=== PATIENT | female | born 1970 | race Caucasian/White ===

== ENCOUNTER 2019-10-05 19:51 | Emergency (ER) | payer OTHER ==
[2019-10-05] MEDS ORDERED: ONDANSETRON *ODT* 4 MG TABLET SL ONE (20:22)
[2019-10-05 20:24] VITALS: TEMP 98.7
--- NOTE | 2019-10-05 20:24 | PDOC ---
History of Present Illness - General Chief Complaint: Cold Symptoms Stated Complaint: SYNCOP/FEVER/ COUGH Time Seen by Provider: 10/05/19 20:07 History Source: Patient - History of Present Illness Initial Comments: 10/05/19 20:17 49 year old female BIB ambulance c/o feve rx 4 days, cough, + naUSEA. patient reports that she " passed out after feeling nauseous" denies chest pAIN, diaphoresis, headache. no head injury during the syncopal episode. witnessed as per patient. denies incontinence of bowel or urine BGm by ems 111 denies recent travel, denies covid contact. with similar symptoms. Timing/Duration: reports: just prior to arrival Past History - Travel Traveled outside of the country in the last 30 days: No Close contact w/someone who was outside of country & ill: No - Past Medical History Allergies/Adverse Reactions: Allergies Allergy/AdvReac Type Severity Reaction Status Date / Time No Known Allergies Allergy Verified 07/02/16 10:11 Home Medications: Ambulatory Orders Ibuprofen [Motrin -] 600 mg PO TID #21 tablet 07/02/16 Cancer: Yes (BRAIN TUMOR) - Surgical History Neurologic Surgery: Yes ("BRAIN TUMOR REMOVAL") - Psycho Social/Smoking Cessation Hx Smoking History: Never smoked Review of Systems - Review of Systems Able to Perform ROS?: Yes Is the patient limited Nicaraguan proficient: No Constitutional: Yes: Chills, Fever Cardiac (ROS): Yes: Lightheadedness ABD/GI: Yes: Nausea Neurological: Yes: Dizziness *Physical Exam - Vital Signs 10/05/19 20:24 Last Vital Signs Temp Pulse Resp BP Pulse Ox 98.7 F 98 H 16 100/59 L 100 10/05/19 20:19 10/05/19 20:19 10/05/19 20:19 10/05/19 20:19 10/05/19 20:19 - Physical Exam General Appearance: Yes: Appropriately Dressed Respiratory/Chest: positive: Lungs Clear, Normal Breath Sounds Cardiovascular: positive: Tachycardia Extremity: positive: Normal Capillary Refill, Normal Inspection, Normal Range of Motion Integumentary: positive: Warm, Pale Neurologic: positive: Fully Oriented, Alert ED Progress Note - Progress Note Progress Note: 10/05/19 20:29 A: syncope; suspected COvid P: labs EKG chest xray case discussed with Dr. barton. patient send to room 9b Discharge - Discharge Information Problems reviewed: Yes Clinical Impression/Diagnosis: Suspected 2019 novel coronavirus infection, Syncope and collapse - Follow up/Referral Referrals: Darrius Mascorro [Primary Care Provider] - - Patient Discharge Instructions - Post Discharge Activity
--- NOTE | 2019-10-05 20:43 | PDOC ---
History of Present Illness - General Chief Complaint: Cold Symptoms Stated Complaint: SYNCOP/FEVER/ COUGH Time Seen by Provider: 10/05/19 20:07 History Source: Patient Exam Limitations: No Limitations - History of Present Illness Initial Comments: 10/05/19 20:42 Paula Barrientos is a 49F with PMH meningioma s/p resection presenting with syncope with associated nausea, fever, and cough. Has been feeling poorly with URI sx nausea, poor PO intake, and dry cough for the last 5 days, has had fever for last 3 days responsive to Tylenol. Denies covid-19 contacts, with otherwise healthy but started feeling similar sx today, both have been self-quarantining at home for the past week. Today stood up from sitting, was walking in her house when she had a sensation of lightheadedness and warmth traveling up her body, felt nauseated, walked to bathroom and yelled for her and had a syncopal episode, was found by . Denies chest pain, palpitations, SOB, abdominal pain, vomiting, denies any injuries or head injury, denies numbness/tingling, able to walk without issue. Takes gabapentin per OSH neurologist, has had meningioma resection without resid ual deficits. Denies alcohol/drug/tobacco use. Denies . Past History - Past Medical History Allergies/Adverse Reactions: Allergies Allergy/AdvReac Type Severity Reaction Status Date / Time No Known Allergies Allergy Verified 10/05/19 23:32 Home Medications: Ambulatory Orders Ondansetron [Zofran *Odt*] 4 mg SL BID #14 od.tablet 10/05/19 Cancer: Yes (BRAIN TUMOR) - Surgical History Neurologic Surgery: Yes ("BRAIN TUMOR REMOVAL") - Psycho Social/Smoking Cessation Hx Smoking History: Never smoked Have you smoked in the past 12 months: No Review of Systems - Review of Systems Able to Perform ROS?: Yes Is the patient limited Albanian proficient: No Constitutional: Yes: Chills, Fever, Malaise, Weakness HEENTM: No: Blurred Vision, Recent change in vision, Double Vision Respiratory: Yes: Cough. No: Shortness of Breath, SOB with Exertion, SOB at Rest, Productive cough Cardiac (ROS): Yes: Lightheadedness, Syncope. No: Chest Pain, Edema, Irregular Heart Rate ABD/GI: Yes: Nausea, Poor Appetite, Poor Fluid Intake. No: Constipated, D iarrhea, Vomiting : No: Symptoms Reported Musculoskeletal: No: Symptoms Reported Integumentary: No: Symptoms Reported Neurological: No: Headache, Numbness, Paresthesia, Weakness Hematologic/Lymphatic: No: Symptoms Reported All Other Systems: Reviewed and Negative *Physical Exam - Vital Signs Last Vital Signs Temp Pulse Resp BP Pulse Ox 98.7 F 98 H 16 100/59 L 100 10/05/19 20:19 10/05/19 20:19 10/05/19 20:19 10/05/19 20:19 10/05/19 20:19 - Physical Exam General Appearance: Yes: Nourished, Appropriately Dressed, Other (resting comfortably in bed, in NAD, good spirits). No: Apparent Distress HEENT: positive: EOMI, AZAEL, Normal Voice, Symmetrical, Pharynx Normal. negative: Scleral Icterus (R), Scleral Icterus (L), Pharyngeal Erythema, Tonsillar Exudate, Tonsillar Erythema Neck: positive: Trachea midline, Supple. negative: Tender, Normal Thyroid, Rigid, Lymphadenopathy (R), Lymphadenopathy (L), Tender lateral, Tender midline Respiratory/Chest: positive: Lungs Clear, Normal Breath Sounds. negative: Chest Tender, Respiratory Distress, Accessory Muscle Use, Crackles, Rales, Rhonchi, Stridor, Wheezing Cardiovascular: positive: Regular Rhythm, Regular Rate. negative: Murmur Gastrointestinal/Abdominal: positive: Normal Bowel Sounds, Flat, Soft. negative: Tender, Organomegaly, Pulsatile Mass, Guarding, Rebound Musculoskeletal: positive: Normal Inspection. negative: CVA Tenderness Extremity: positive: Normal Capillary Refill, Normal Inspection, Normal Range of Motion, Pelvis Stable. negative: Tender, Delayed Capillary Refill, Pedal Edema, Swelling Integumentary: positive: Normal Color, Dry, Warm Neurologic: positive: baby attendant II-XII NML intact, Fully Oriented, Alert (fully alert and oriented), Normal Mood/Affect, Normal Response, Motor Strength 5/5. negative: Facial Droop, Numbness, Sensory Deficit ED Treatment Course - LABORATORY CBC & Chemistry Diagram: 10/05/19 21:24 10/05/19 21:24 Medical Decision Making - Medical Decision Making 10/05/19 23:37 Patient presents with flu-like symptoms consistent with covid-19 as well as a syncopal episode today without chest pain, seizure symptoms mostly consistent with vasovagal syncope in the setting of poor PO and dehydration. Giving 1L IVF and Zofran for symptoms, CMP/CBC to eval lytes/infection, serum test, ECG/CP/CXR to eval cardiac causes/PNA, UA for eval UTI, CT head for eval ICH, pa tient not on AC. 10/06/19 00:27 Labs notable for: - CMP WNL - CBC WNL - negative - coags WNL 10/06/19 00:27 ECG shows NSR with HR 87, QRS 72, QTc 435, no concerning TWI or ischemic changes . Patient feels better after medications, requesting referral for covid-19 testing, will include in discharge. Pending CT scan at this time. 10/06/19 03:14 CT no acute pathology. Stable for discharge home with PMD f/u and strict return precautions. Discharge - Discharge Information Problems reviewed: Yes Clinical Impression/Diagnosis: Suspected 2019 novel coronavirus infection, Vasovagal episode Condition: Improved - Additional Discharge Information Prescriptions: Ondansetron [Zofran *Odt*] 4 mg SL BID #14 od.tablet - Follow up/Referral Referrals: Darrius Mascorro [Primary Care Provider] - - Patient Discharge Instructions Patient Printed Discharge Instructions: DI for Syncope in Adults (Fainting), [facility]-Coronavirus Instructions Additional Instructions: Today you were evaluated for fainting. Your labs and CT scan do not show any problems. We gave you some fluids and Zofran and you felt better. Your fever and nausea and being caused by a viral illness, most likely COVID-19. Please stay at home and self-quarantine for the next 14 days to prevent the spread. However, if you experience worsening nausea, vomiting, chest pain, difficulty breathing, abdominal pain, or any other new or concerning symptoms, please return to the emergency room. The number to schedule drive-in COVID-19 testing is [phone]. Please call to schedule appointment! Testing centers are in [facility]. - Post Discharge Activity
--- NOTE | 2019-10-05 20:54 | PDOC ---
Attending Attestation - Resident Resident Name: Simone Govea - ED Attending Attestation I have performed the following: I have examined & evaluated the patient, The case was reviewed & discussed with the resident, I agree w/resident's findings & plan - HPI HPI: 10/06/19 00:43 see resident hpi - Physicial Exam PE: 10/06/19 00:44 see resident exam - Medical Decision Making 10/06/19 00:44 49-year-old female with respiratory symptoms, decreased p.o. intake today with witnessed vasovagal event during initial evaluation at triage Patient feeling better after IV fluids Evaluation including CT scan of the brain shows no acute significant abnormality Will DC with recommendations for supportive care and primary care follow-up after self-isolation Discharge - Discharge Information Problems reviewed: Yes Clinical Impression/Diagnosis: Suspected 2019 novel coronavirus infection, Vasovagal episode Condition: Improved - Additional Discharge Information Prescriptions: Ondansetron [Zofran *Odt*] 4 mg SL BID #14 od.tablet - Follow up/Referral Referrals: Darrius Mascorro [Primary Care Provider] - - Patient Discharge Instructions Patient Printed Discharge Instructions: DI for Syncope in Adults (Fainting), [facility]-Coronavirus Instructions Additional Instructions: Today you were evaluated for fainting. Your labs and CT scan do not show any problems. We gave you some fluids and Zofran and you felt better. Your fever and nausea and being caused by a viral illness, most likely COVID-19. Please stay at home and self-quarantine for the next 14 days to prevent the spread. However, if you experience worsening nausea, vomiting, chest pain, difficulty breathing, abdominal pain, or any other new or concerning symptoms, please return to the emergency room. The number to schedule drive-in COVID-19 testing is [phone]. Please call to schedule appointment! Testing centers are in [facility]. - Post Discharge Activity
[2019-10-05 21:36] LABS: BASO % 0.2 % (0-2.0); HEMATOCRIT 34.3 % (32.4-45.2); HEMOGLOBIN 11.8 GM/dL (10.7-15.3); LYMPH % 7.4 % (8-40); MCH 30.7 pg (25.7-33.7); MCHC 34.5 g/dl (32.0-36.0); MEAN PLT VOLUME 8.2 fl (7.5-11.1); NEUT % 86.4 % (42.8-82.8); PLATELET COUNT 226 K/MM3 (134-434); RBC 3.85 M/mm3 (3.60-5.2); RDW 12.9 % (11.6-15.6); WHITE BLOOD COUNT 7.2 K/mm3 (4.0-10.0)
[2019-10-05 21:50] LABS: INR 1.14 (0.83-1.09); PROTHROMBIN TIME (PATIENT) 13.5 SEC (9.7-13.0)
[2019-10-05 21:53] LABS: ACTIVATED PTT 32.4 SECONDS (25.2-36.5)
[2019-10-05 22:08] LABS: ALBUMIN 3.5 g/dl (3.4-5.0); ALK PHOS 67 U/L (45-117); ANION GAP 8 MMOL/L (8-16); BILIRUBIN,TOTAL 0.4 mg/dL (0.2-1); BLOOD UREA NITROGEN 7.8 mg/dL (7-18); CALCIUM 8.1 mg/dL (8.5-10.1); CHLORIDE 102 mmol/L (98-107); CO2 24 mmol/L (21-32); CREATININE 0.5 mg/dL (0.55-1.3); GLUCOSE,RANDOM 108 mg/dL (74-106); MAGNESIUM 2.1 mg/dL (1.8-2.4); SGOT/AST 40 U/L (15-37); SGPT/ALT 19 U/L (13-61); SODIUM 134 mmol/L (136-145); TOT PROT 7.4 g/dl (6.4-8.2)
[2019-10-05] MEDS ORDERED: ONDANSETRON *ODT* 4 MG TABLET ONE (22:16)
[2019-10-06 00:42] VITALS: BP 108/63; PULSE 84
--- NOTE | 2019-10-06 10:05 | EKG ---
Test Reason : Blood Pressure : / mmHG Vent. Rate : 087 BPM Atrial Rate : 087 BPM P-R Int : 128 ms QRS Dur : 072 ms QT Int : 362 ms P-R-T Axes : 066 069 043 degrees QTc Int : 435 ms NORMAL SINUS RHYTHM POSSIBLE LEFT ATRIAL ENLARGEMENT NONSPECIFIC ST ABNORMALITY ABNORMAL ECG NO PREVIOUS ECGS AVAILABLE Confirmed by Guille Sanchez MD ([id number]) on 10/06/2019 10:05:36 AM Referred By: Confirmed By:Guille Sanchez MD
== END 2019-10-06 00:55 ==
LOC: JER 19:51
DX: R55 Syncope and collapse (principal)
CPT/HCPCS: 36415; 70450-TC; 71045-TC-FY; 80053; 82550; 83735; 84484; 84703; 85025; 85610; 85730; 93005; 93010; 99284-25; Q0162

== ENCOUNTER 2022-04-19 21:44 | Emergency (ER) | payer OTHER ==
[2022-04-19 21:59] VITALS: BMI 25.0
[2022-04-19 22:03] VITALS: BP 113/66; PULSE 112; RESP 17; TEMP 100.9
[2022-04-19 22:27] LABS: HEMATOCRIT 22.6 % (32.4-45.2); HEMOGLOBIN 7.6 G/dL (10.7-15.3); MCH 30.7 pg (25.7-33.7); MCHC 33.5 g/dl (32.0-36.0); MEAN CELL VOLUME 91.8 fl (80-96); MEAN PLT VOLUME 7.1 fl (7.5-11.1); PLATELET COUNT 509.3 10^3/uL (134-434); RBC 2.46 10^6/uL (3.60-5.2); RDW 15.9 % (11.6-15.6); WHITE BLOOD COUNT 9.4 10^3/uL (4.0-10.8)
[2022-04-19 23:16] LABS: PLATELET ESTIMATE SLT INCREASE
== END 2022-04-19 22:51 | disposition home or self-care (01) ==
LOC: FER 21:44
DX: D64.9 Anemia, unspecified (principal)
CPT/HCPCS: 36415; 85025; 99283-25

== ENCOUNTER 2022-05-20 19:35 | Emergency (ER) | payer OTHER ==
[2022-05-20 19:42] VITALS: BP 134/56; PULSE 106; RESP 16; TEMP 100.1; BMI 24.5
[2022-05-20 20:36] LABS: HEMATOCRIT 24.1 % (32.4-45.2); HEMOGLOBIN 7.7 G/dL (10.7-15.3); MCH 31.1 pg (25.7-33.7); MCHC 31.9 g/dl (32.0-36.0); MEAN CELL VOLUME 97.4 fl (80-96); PLATELET COUNT 492.8 10^3/uL (134-434); RBC 2.47 10^6/uL (3.60-5.2); RDW 17.8 % (11.6-15.6); WHITE BLOOD COUNT 10.1 10^3/uL (4.0-10.8)
[2022-05-20 20:49] LABS: EPITHELIAL CELLS FEW /hpf
[2022-05-20 20:51] LABS: PLATELET ESTIMATE SLT INCREASE
[2022-05-20 21:25] LABS: ALBUMIN 2.3 g/dl (3.4-5.0); BILIRUBIN,TOTAL 0.6 mg/dl (0.2-1); CALCIUM 7.8 mg/dl (8.5-10); CREATININE 0.6 mg/dl (0.55-1.3); TOT PROT 5.9 g/dl (6.4-8.2)
[2022-05-20] MEDS ORDERED: POTASSIUM CHLORIDE TABS 20 MEQ TABLET.ER (FP) PO ONE ×2 (21:40→21:45)
== END 2022-05-20 21:53 | disposition home or self-care (01) ==
LOC: FER 19:35
DX: D64.9 Anemia, unspecified (principal); E87.1 Hypo-osmolality and hyponatremia; E87.6 Hypokalemia
CPT/HCPCS: 36415; 71045-TC-FY; 80053; 81003; 81015; 85025; 87040; 87086; 99284-25